=== PATIENT | male | born 1960 | race Caucasian/White ===

== ENCOUNTER → 2020-03-03 | Outpatient (CLI) | payer BC ==
--- NOTE | 2020-03-03 08:27 | RAD ---
EXAM: Abdomen sonogram. HISTORY: Elevated liver function laboratory values. TECHNIQUE: Sonographic imaging of the abdomen was performed. COMPARISON: None. FINDINGS: The liver is normal in size. No focal hepatic lesion is seen. The gallbladder is unremarkab le. The common bile duct is normal in caliber. The kidneys are normal in size. There is no hydronephr osis. There is a suspected nonobstructing right renal stone. The spleen is normal in size. The pancre as, aorta and inferior cava are predominantly obscured due to bowel gas. IMPRESSION: 1. No acute sonographic finding and no finding to correlate with abnormal liver function laboratory v alues. 2. Small echogenic focus within the right kidney, possibly due to an obstructing stone. Electronically signed by: Elisha Rosado MD (03/03/2020 8:24 AM) [id number]
== END ==
LOC: US 07:43
PROVIDERS: ATTEND Family Medicine
DX: R79.89 Other specified abnormal findings of blood chemistry (principal)
CPT/HCPCS: 76700